=== PATIENT | male | born 1950 | race Two or more races ===

== ENCOUNTER 2021-05-02 16:54 | Inpatient (IN) | payer OTHER ==
[~2021-05-02] VITALS: Ht 175.3 cm; Wt 80.7 kg
[2021-05-02] MEDS ORDERED: CANDESARTAN CILE4 MG PO (16:59)
[2021-05-08] MEDS ORDERED: NIFEDIPINE ER60 MG PO (09:30)
[2021-05-08] MEDS ORDERED: ANTI-GAS166 MG PO (09:30)
[2021-05-08] MEDS ORDERED: ULTRAM50 MG PO (09:30)
[2021-05-08] MEDS ORDERED: PROTONIX40 MG PO (09:30)
== END 2021-05-08 09:44 | disposition home or self-care (01) | DRG 419 ==
LOC: ER 16:54 → MEDJ 05-03 00:07 → SURG 05-03 00:07
PROVIDERS: Surgery; ADMIT Internal Medicine; ATTEND Internal Medicine
PROC: 0FT44ZZ Resection of Gallbladder, Percutaneous Endoscopic Approach (ICD-10-PCS; principal; 2021-05-06 13:00)
DX: K80.00 Calculus of gallbladder with acute cholecystitis without obstruction (principal); I10 Essential (primary) hypertension; Z20.822 Contact with and (suspected) exposure to COVID-19; K59.00 Constipation, unspecified